=== PATIENT | female | born 1955 | race Caucasian/White ===

== ENCOUNTER 2017-03-16 12:07 | Emergency (ER) | payer OTHER, MEDICARE ==
[~2017-03-16] VITALS: Ht 170.2 cm; Wt 79.4 kg
[~2017-03-16 12:07] MED LIST: ATOR40TA59 PO; BUPR100T6 PO; BUPR150T6 PO; ESZO3TAB28 PO; EXEN2VIA SQ; LEVO50TA5 PO; LIDO700A4 TP; METF500T4 PO; METH-37 PO; PROP40TA PO
--- NOTE | 2017-03-16 14:10 | RAD ---
Examination: Ultrasound left lower extremity venous duplex History: History of postop left calf pain. Comparison: None available Technique: Grayscale, color Doppler 2-D, spectral waveform analysis in the left lower extremity venous system. Findings: The visualized common femoral vein, superficial femoral vein, popliteal vein demonstrate normal compression augmentation of flow. The visualized calf veins are patent. Few left inguinal lymph nodes identified. Impression: No evidence of deep venous thrombosis left lower extremity venous system.
--- NOTE | 2017-03-16 14:17 | PHYS DOC ---
Past Medical History Past Medical History: Anxiety, Depression, Diabetes-Type II, High Cholesterol, Hypothyroid Past Surgical History: Cholecystectomy, Hysterectomy, Other Additional Past Surgical Histo: fasciotomy of foot; esophagus; L ankle ligament and tendon Alcohol Use: None Drug Use: None Adult General Chief Complaint Chief Complaint: LOWER EXT PAIN [facility] HPI Patient is a 61 year old female who presents with lower leg pain that is achy and constant and worse with use after having a lateral ankle surgery a few days ago and having a short leg splint placed. She was sent to the emergency department to rule out DVT or other pathology. She denies numbness, tingling, weakness, fever or chills, rash, swelling, new injury. Review of Systems Review of Systems Constitutional: Denies fever or chills [] Eyes: Denies change in visual acuity, redness, or eye pain [] HENT: Denies nasal congestion or sore throat [] Respiratory: Denies cough or shortness of breath [] Cardiovascular: No additional information not addressed in HPI [] GI: Denies abdominal pain, nausea, vomiting, bloody stools or diarrhea [] : Denies dysuria or hematuria [] Musculoskeletal: Denies back pain [] Integument: Denies rash or skin lesions [] Neurologic: Denies headache, focal weakness or sensory changes [] Endocrine: Denies polyuria or polydipsia [] Allergies Allergies Allergies Coded Allergies Type Severity Reaction Last Updated Verified No Known Drug Allergies 08/07/15 No Physical Exam Physical Exam Constitutional: Well developed, well nourished, no acute distress, non-toxic appearance. [] HENT: Normocephalic, atraumatic, bilateral external ears normal, oropharynx moist, nose normal. [] Eyes: PERRLA, EOMI. [] Neck: Normal range of motion, supple. [] Cardiovascular:Heart rate regular rhythm [] Lungs & Thorax: Bilateral breath sounds clear to auscultation [] Abdomen: Bowel sounds normal, soft, no tenderness. [] Skin: Warm, dry, no erythema, no rash. [] Back: Normal range of motion. [] Extremities: LLE with well appearing incision to lateral ankle with no surrounding discoloration, fluctuance, or swelling; Able to flex/ex/IR/ER hip, knee full rom, ankle df/pf not tested due to recent operation, toes df/pf; SILT leahy/sa/sp/dp/tib distributions; good dp and pt pulses equal bilaterally; no palpable cord, no edema or discoloration Neurologic: Alert and oriented X 3, normal motor function, normal sensory function, no focal deficits noted. [] Psychologic: Affect normal, judgement normal, mood normal. [] Current Patient Data Vital Signs Vital Signs Date Time Temp Pulse Resp B/P (MAP) Pulse Ox O2 Delivery O2 Flow Rate FiO2 03/16/17 14:31 80 18 109/65 (80) 97 Room Air 03/16/17 12:50 98.2 98.2 Radiology/Procedures Radiology/Procedures Ultrasound venous Doppler left lower extremity Impression: No evidence of deep venous thrombosis left lower extremity venous system. DICTATED and SIGNED BY: CIERA CAM MD DATE: 03/16/17 5382 Course & Med Decision Making Course & Med Decision Making Pertinent Labs and Imaging studies reviewed. (See chart for details) Exam and ultrasound are reassuring. Splint placed. Encouraged her to follow-up. Return precautions given. She understands and agrees with plan. Dragon Disclaimer Dragon Disclaimer This electronic medical record was generated, in whole or in part, using a voice recognition dictation system. Departure Departure Impression: Primary Impression: Left leg pain Disposition: HOME, SELF-CARE Condition: STABLE Referrals: JIMENA GUZMAN NP (PCP) Patient Instructions: Musculoskeletal Pain Additional Instructions: Follow-up with your orthopedic surgeon and primary care doctor. Return for any concerns. Yue MONTOYA MD Mar 16, 2017 14:17
[2017-03-16 14:31] VITALS: BP 109/65
== END 2017-03-16 15:27 | disposition home or self-care (01) ==
LOC: ER 12:07
DX: M79.662 Pain in left lower leg (principal); E11.9 Type 2 diabetes mellitus without complications; E03.9 Hypothyroidism, unspecified; E78.00 Pure hypercholesterolemia, unspecified; Z90.710 Acquired absence of both cervix and uterus; Z90.49 Acquired absence of other specified parts of digestive tract
CPT/HCPCS: 29515; 93971; 99284-25

== ENCOUNTER → 2017-07-16 | Outpatient (CLI) | payer OTHER ==
--- NOTE | 2017-07-16 14:48 | KCIC ---
DATE: 07/16/2017 EXAM: MAMMO SANKET SCREENING BILATERAL HISTORY: Screening COMPARISON: One year earlier This study was interpreted with the benefit of Computerized Aided Detection (CAD). FINDINGS: Breast Density: SCATTERED The breast parenchyma shows scattered fibroglandular densities. Breast parenchyma level B. No mass or suspect calcifications are seen in either breast. There has not been a significant change relative to the previous exam. Occasional lymph nodes are noted in both axilla. IMPRESSION: Benign findings BI-RADS CATEGORY: 2 BENIGN FINDING(S) RECOMMENDED FOLLOW-UP: 12M 12 MONTH FOLLOW-UP PQRS compliance statement: Patient information was entered into a reminder system with a target due date 07/16/2018 for the next mammogram. Mammography is a sensitive method for finding small breast cancers, but it does not detect them all and is not a substitute for careful clinical examination. A negative mammogram does not negate a clinically suspicious finding and should not result in delay in biopsying a clinically suspicious abnormality. "Our facility is accredited by the [employer] Mammography Program."
== END | disposition home or self-care (01) ==
LOC: KCIC MAMMO 11:55
PROVIDERS: ATTEND Clinical Nurse Specialist Family Health
DX: Z12.31 Encounter for screening mammogram for malignant neoplasm of breast (principal)
CPT/HCPCS: 77063; G0202; 77067

== ENCOUNTER → 2018-07-18 | Outpatient (CLI) | payer OTHER ==
[~2018-07-18] MED LIST changes: +METF500T16 PO; -METF500T4 PO
--- NOTE | 2018-07-19 14:00 | KCIC ---
3d digital tomography Bilateral History: Routine screening Technique: Bilateral 3d digital tomographic views were obtained with [employer] and reviewed on a [employer] workstation. In addition, CAD - computer aided detection was utilized. Comparison: July 15, 2016. Findings: Breast Tissue Density C : The breast tissue is heterogeneously dense. Scattered fibroglandular elements may obscure underlying pathology. There are no suspicious masses, microcalcifications or areas of architectural distortion. Impression: No suspicious findings. BI-RADS Category 1: Negative. Normal interval followup. The patient will receive a letter with the results in the mail. Your mammogram demonstrates that you have dense breast tissue, which could hide abnormalities, and if you have other risk factors for breast cancer that have been identified, you might benefit from supplemental screening tests that may be suggested by your ordering physician. Dense breast tissue, in and of itself, is a relatively common condition. This information is not provided to cause undue concern, but rather to raise your awareness and to promote discussion with your physician regarding the presence of other risk factors, in addition to dense breast tissue. A report of your mammography results will be sent to you and your physician. You should contact your physician if you have any questions or concerns regarding this report. A mammogram does not have 100% sensitivity and therefore a negative imaging study should not delay further work up of a suspicious abnormality. Patient information is entered into the [facility] reminder system using [employer] with a target due date for the next screening mammogram. The patient will receive a reminder. "Our facility is accredited by the [employer] Mammography [employer]." Electronically signed by: Kamran Larson III, MD (07/19/2018 1:37 PM) [id number]
== END | disposition home or self-care (01) ==
LOC: KCIC MAMMO 10:49
PROVIDERS: ATTEND Clinical Nurse Specialist Family Health
DX: Z12.31 Encounter for screening mammogram for malignant neoplasm of breast (principal)
CPT/HCPCS: 77063; 77067

== ENCOUNTER → 2019-04-19 | Outpatient (CLI) | payer OTHER ==
--- NOTE | 2019-04-19 17:16 | KCIC ---
RIBS RIGHT AND PA CHEST History: Pleuritic pain. Posterior right rib pain for 2 weeks. Difficulty breathing. Comparison with chest image of August 07, 2015, no report available. The heart size is not enlarged. Aortic contour appears within normal limits. No evidence of pneumothorax. No pleural effusion. No infiltrate is identified. No no evidence of displaced right rib fracture. IMPRESSION: No definite acute abnormality. Electronically signed by: Ildefonso Cantu MD (04/19/2019 5:13 PM) [facility]
== END | disposition home or self-care (01) ==
LOC: KCIC 15:20
PROVIDERS: ATTEND Clinical Nurse Specialist Family Health
DX: R07.81 Pleurodynia (principal)
CPT/HCPCS: 71101

== ENCOUNTER → 2019-07-31 | Outpatient (CLI) | payer OTHER ==
--- NOTE | 2019-07-31 14:01 | KCIC ---
Bilateral digital screening mammograms with 3-D tomosynthesis: Reason for examination: Routine screening. Comparison is made to previous studies dated 07/18/2018 and 07/16/2017. Bilateral mammograms in CC and oblique projections were obtained with 2-D imaging and 3-D tomosynthesis imaging on a Siem[employer] Inspiration unit and reviewed on the workstation. Interpretation was made with the benefit of CAD. The skin and nipples show no abnormalities. No abnormal axillary lymph nodes are seen. The breast parenchyma shows scattered fatty and fibroglandular density. (Breast density: Category B.) There are no dominant masses, suspicious calcifications or architectural distortion. Impression: No evidence of malignancy. Recommend routine screening. BI-RAD Category 1: Negative. "Our facility is accredited by the [employer] Mammography [employer]." This patient's information has been entered into a reminder system for the patient to be notified with the results of her examination and a target date for the next mammogram. Electronically signed by: Mavis Boswell MD (07/31/2019 1:58 PM) [id number]
== END | disposition home or self-care (01) ==
LOC: KCIC MAMMO 11:33
PROVIDERS: ATTEND Clinical Nurse Specialist Family Health
DX: Z12.31 Encounter for screening mammogram for malignant neoplasm of breast (principal)
CPT/HCPCS: 77063; 77067

== ENCOUNTER → 2020-08-27 | Outpatient (CLI) | payer OTHER ==
--- NOTE | 2020-08-27 11:20 | KCIC ---
INDICATION: Osteoporosis screening. . Postmenopausal screening COMPARISON: None. TECHNIQUE: Bone densitometry was performed through the lumbar spine and proximal femur. FINDINGS: Lumbar Spine: BMD: 1.15 T-Score: 0.9 Proximal Femur: BMD: 0.99 T-Score: 0.4 IMPRESSION: 1. Lumbar spine falls within the normal range. 2. Proximal femur falls within the normal range. Electronically signed by: Rio Ch MD (08/27/2020 11:17 AM) [id number]
--- NOTE | 2020-08-27 15:15 | KCIC ---
Bilateral digital screening mammograms with 3-D tomosynthesis: Reason for examination: Routine screening. Comparison is made to previous studies dated back to 07/15/2016. Bilateral mammograms in CC and oblique projections were obtained with 2-D imaging and 3-D tomosynthesis imaging on a Siem[employer] Inspiration unit and reviewed on the workstation. Interpretation was made with the benefit of CAD. The skin and nipples show no new abnormalities. No abnormal axillary lymph nodes are seen. The breast parenchyma shows scattered fatty and fibroglandular density. (Breast density: Category B.) There are no dominant masses, suspicious calcifications or architectural distortion. Impression: No evidence of malignancy. Recommend routine screening. BI-RAD Category 1: Negative. "Our facility is accredited by the [employer] Mammography Program." This patient's information has been entered into a reminder system for the patient to be notified with the results of her examination and a target date for the next mammogram. Electronically signed by: Mavis Boswell MD (08/27/2020 3:12 PM) [id number]
== END ==
LOC: KCIC MAMMO 09:27
PROVIDERS: ATTEND Clinical Nurse Specialist Family Health
DX: Z12.31 Encounter for screening mammogram for malignant neoplasm of breast (principal); N95.1 Menopausal and female climacteric states
CPT/HCPCS: 77063; 77067; 77080

== ENCOUNTER → 2021-09-02 | Outpatient (CLI) | payer OTHER ==
[~2021-09-02] MED LIST changes: +BUPR150T21 PO; -BUPR150T6 PO
--- NOTE | 2021-09-02 10:31 | KCIC ---
Bilateral digital screening mammograms with 3-D tomosynthesis: Reason for examination: Routine screening. Comparison is made to previous studies dated back to 04/15/2015. Bilateral mammograms in CC and oblique projections were obtained with 2-D imaging and 3-D tomosynthes is imaging on a Siemens Inspiration unit and reviewed on the workstation. Interpretation was made wit h the benefit of CAD. The skin and nipples show no abnormalities. No abnormal axillary lymph nodes are seen. The breast par enchyma shows scattered fatty and fibroglandular density. (Breast density: Category B.) There appears to be a small parenchymal asymmetry at approximately the 3:00 position of the left breast 5 cm from the nipple measuring approximately 8 mm in size. Recommend further evaluation with coned compression views and ultrasound. There are no other dominant masses, suspicious calcifications or architectural distortion. Impression: Small 8 mm nodular density at approximately the 3:00 position of the left breast 5 cm from the nipple . Recommend further evaluation with coned compression views in CC and lateral projections and left br east ultrasound. BI-RAD Category 0: Incomplete. Needs additional imaging evaluation. "Our facility is accredited by the [employer] Mammography [employer]." This patient's information has been entered into a reminder system for the patient to be notified wit h the results of her examination and a target date for the next mammogram. Electronically signed by: Mavis Boswell MD (09/02/2021 10:29 AM) [facility]
== END ==
LOC: KCIC MAMMO 08:14
PROVIDERS: ATTEND Clinical Nurse Specialist Family Health
DX: Z12.31 Encounter for screening mammogram for malignant neoplasm of breast (principal)
CPT/HCPCS: 77063; 77067

== ENCOUNTER → 2021-09-24 | Outpatient (CLI) | payer OTHER ==
--- NOTE | 2021-09-24 12:07 | KCIC ---
Left breast diagnostic digital mammogram: Reason for examination: Nodular density on screening mammogram. Comparison is made to mammographic exam dated 09/02/2021. Coned compression views were obtained of the left breast in CC and true lateral projections. With these additional views, there is no suspicious-appearing nodules seen. The nodularity may have r eflected superimposition of tissues. Ultrasound to follow. IMPRESSION: No suspicious abnormality seen mammographically. Ultrasound to follow. BI-RADS Category 0: Incomplete: Need additional imaging evaluation. Left breast ultrasound: Ultrasound examination of the left breast and axilla was performed. At the 3:00 position 5 cm from the nipple, there is some minimal fibrocystic change and some ductal e ctasia is seen in the retroareolar position. No suspicious-appearing nodules are seen within the left breast. No abnormal appearing lymph nodes are seen in the left axilla. IMPRESSION: No suspicious abnormality seen in the left breast. Recommend routine mammographic follow-up. BI-RADS Category 2: Benign. "Our facility is accredited by the [employer] Mammography Program." This patient's information has been entered into a reminder system for the patient to be notified wit h the results of her examination and a target date for the next mammogram. Electronically signed by: Mavis Boswell MD (09/24/2021 10:11 AM) [facility]
== END ==
LOC: KCIC MAMMO 08:44
PROVIDERS: ATTEND Clinical Nurse Specialist Family Health
DX: R92.8 Other abnormal and inconclusive findings on diagnostic imaging of breast (principal)
CPT/HCPCS: 76641; 77065